=== PATIENT | female | born 1945 | race Caucasian/White ===

== ENCOUNTER 2018-07-27 11:32 | Outpatient (RCR) | payer MEDICARE, BC | END 2018-07-28 | LOC: RESP 11:32 | PROVIDERS: ATTEND Internal Medicine Critical Care Medicine | DX: R06.00 Dyspnea, unspecified (principal); R06.89 Other abnormalities of breathing; J45.909 Unspecified asthma, uncomplicated; J84.10 Pulmonary fibrosis, unspecified; J47.9 Bronchiectasis, uncomplicated | CPT/HCPCS: G0238; G0424 ==

== ENCOUNTER 2018-08-02 11:09 | Outpatient (RCR) | payer MEDICARE, BC | END 2018-08-28 | LOC: RESP 11:09 | PROVIDERS: ATTEND Internal Medicine Critical Care Medicine | DX: J44.9 Chronic obstructive pulmonary disease, unspecified (principal) | CPT/HCPCS: G0238 ×4; G0424 ×4 ==

== ENCOUNTER 2018-09-20 11:04 | Outpatient (RCR) | payer MEDICARE, BC | END 2018-09-28 | LOC: RESP 11:04 | PROVIDERS: ATTEND Internal Medicine Critical Care Medicine | DX: R06.00 Dyspnea, unspecified (principal) ==

== ENCOUNTER 2018-10-02 11:14 | Outpatient (RCR) | payer MEDICARE, BC | END 2018-10-26 | LOC: RESP 11:14 | PROVIDERS: ATTEND Internal Medicine Critical Care Medicine | DX: R06.00 Dyspnea, unspecified (principal); R06.89 Other abnormalities of breathing | CPT/HCPCS: G0238 ×6; G0424 ×6 ==

== ENCOUNTER 2018-11-08 14:46 | Outpatient (RCR) | payer MEDICARE, BC | END 2018-11-26 | LOC: RESP 14:46 | PROVIDERS: ATTEND Internal Medicine Critical Care Medicine | DX: R06.00 Dyspnea, unspecified (principal); R06.9 Unspecified abnormalities of breathing | CPT/HCPCS: G0238 ×4; G0424 ×4 ==

== ENCOUNTER 2018-12-18 11:00 | Outpatient (RCR) | payer MEDICARE, BC | END 2018-12-26 | LOC: RESP 11:00 | PROVIDERS: ATTEND Internal Medicine Critical Care Medicine | DX: J44.9 Chronic obstructive pulmonary disease, unspecified (principal) | CPT/HCPCS: G0238 ×5; G0424 ×5 ==

== ENCOUNTER 2019-03-14 11:04 | Outpatient (RCR) | payer MEDICARE, BC | END 2019-03-28 | LOC: RESP 11:04 | PROVIDERS: ATTEND Internal Medicine Critical Care Medicine | DX: J44.9 Chronic obstructive pulmonary disease, unspecified (principal) | CPT/HCPCS: G0238 ×2; G0424 ×2 ==

== ENCOUNTER 2019-04-02 11:14 | Outpatient (RCR) | payer MEDICARE, BC | END 2019-04-28 | LOC: RESP 11:14 | PROVIDERS: ATTEND Internal Medicine Critical Care Medicine | DX: J44.9 Chronic obstructive pulmonary disease, unspecified (principal) | CPT/HCPCS: G0238 ×6; G0424 ×5 ==

== ENCOUNTER 2019-04-09 11:12 | Outpatient (RCR) | payer MEDICARE, BC | END 2019-04-28 | LOC: RESP 11:12 | PROVIDERS: ATTEND Internal Medicine Critical Care Medicine | DX: J44.9 Chronic obstructive pulmonary disease, unspecified (principal) ==

== ENCOUNTER 2019-05-09 11:00 | Outpatient (RCR) | payer MEDICARE, BC | END 2019-05-28 | LOC: RESP 11:00 | DX: R06.00 Dyspnea, unspecified (principal); R06.89 Other abnormalities of breathing | CPT/HCPCS: G0238 ×4; G0424 ×4 ==

== ENCOUNTER 2019-05-30 11:03 | Outpatient (RCR) | payer MEDICARE, BC | END 2019-06-28 | LOC: RESP 11:03 | PROVIDERS: ATTEND Internal Medicine Critical Care Medicine | DX: R06.89 Other abnormalities of breathing (principal); J45.909 Unspecified asthma, uncomplicated; J47.9 Bronchiectasis, uncomplicated; Z99.81 Dependence on supplemental oxygen | CPT/HCPCS: G0238; G0424 ==

== ENCOUNTER 2025-04-26 15:00 | Outpatient (RCR) | payer MEDICARE | END 2025-04-28 | LOC: PT 15:00 | PROVIDERS: ATTEND Orthopaedic Surgery Adult Reconstructive Orthopaedic Surgery | DX: Z47.1 Aftercare following joint replacement surgery (principal); Z96.652 Presence of left artificial knee joint ==

== ENCOUNTER 2025-05-27 16:00 | Outpatient (RCR) | payer MEDICARE | END 2025-05-28 | LOC: PT 16:00 | PROVIDERS: ATTEND Orthopaedic Surgery Adult Reconstructive Orthopaedic Surgery | DX: Z96.652 Presence of left artificial knee joint (principal) ==